=== PATIENT | male | born 1970 ===

== ENCOUNTER 2016-11-19 14:35 | Emergency (ER) | payer SELFPAY ==
[2016-11-19] MEDS ORDERED: DIAZEPAM 5 MG/ML SYRG IV ONE (15:07)
[2016-11-19] MEDS ORDERED: MECLIZINE HCL 25 MG TABLET PO ONE (15:07)
[2016-11-19] MEDS ORDERED: PROMETHAZINE HCL 25 MG in DEXTROSE 5 % IN WATER 50 ML IV ONE ×4 (15:10→15:45)
[2016-11-19] MEDS ORDERED: NORMAL SALINE 1,000 ML IV PRN (15:10)
[2016-11-19 15:32] LABS: Hematocrit 45.9 % (42.0-52.0); Hemoglobin 15.6 gm/dL (13.5-18.0); Mean Cell Volume 89.8 fl (78-100); Mean Corpuscular Hemoglobin 30.5 pg (27-31); Mean Platelet Volume 10.2 fl (6.0-9.5); Neutrophil % 71.6 % (42-75.0); Platelet Count 225 K/mm3 (150-450); Red Blood Count 5.11 M/mm3 (4.7-6.0); White Blood Count 11.2 K/mm3 (4.0-10.5)
--- NOTE | 2016-11-19 15:36 | ERNOTE ---
Dizziness ER Record Date of Service: 11/19/16 Presenting Symptoms: dizziness, vertigo Time Seen by Provider: 11/19/16 15:00 Source: patient, family Exam Limitations: no limitations Immunizations: IMMUNIZATION HX Immunizations Up to Date Yes Allergies/Adverse Reactions: Allergies Allergy/AdvReac Type Severity Reaction Status Date / Time No Known Allergies Allergy Unverified 11/19/16 14:43 Home Medications: HOME MEDICATIONS Meclizine HCl [Antivert] 25 mg PO TID PRN #20 tab 11/19/16 [Last Taken Unknown] Ondansetron [Zofran Odt] 4 mg PO Q6H PRN #20 tab 11/19/16 [Last Taken Unknown] - History of Present Illness Narrative: Patient comes in with vertigo dizziness. Patient who was driving here from [place], [place]. During the ride he started experiencing some dizziness lightheadedness. And then he started vomiting. His dizziness is definitely with any type movements. He did have headache last night but not having any headache presently. Denies any chest pain abdominal pain shortness of breath. His dizziness is worse now even when he opens his eyes. He has not any fever is not felt under the weather at all or flulike symptoms. Patient denies any chest pain abdominal pain no visual changes no weakness on one side or the other. He does not have any known history of any heart disease No family history of any aneurysms. Does have known history of hypertension yesterday his blood pressure was quite high and he was having some headache associated with this. Date (Duration): 11/19/16 Timing and Duration: sudden onset, constant Noted on awakening:: No Associated Symptoms: Present: nausea, vomiting, headache - did have a headache last night but was not having any headache presently, light headedness. Absent : hearing loss, ringing/roaring in ear, ear pain Sense of movement: Present: spinning Decreased ability to stand/walk:: Present: weak, off balance Modifying Factors - (Worsens): Reports: changing position, movement of head, standing position Review of Systems - Review of Systems Constitutional: Absent: fever, chills EYE: Absent: eye pain, eye discharge, blurred vision, double vision Cardiology: Present: no symptoms reported Gastrointestinal/Abdominal: Present: nausea, vomiting. Absent: diarrhea, constipation, abdominal pain Musculoskeletal: Present: no symptoms reported Skin: Present: no symptoms reported Neurological: Present: dizziness/light-headedness. Absent: numbness, tingling, tremors All Other Systems: All systems neg except as marked - Patient's Past Medical History Patient History - Medical: Other Patient History - Cancer: No Hx of Cancer Patient History - Surgical Procedures: T & A - Social History Smoking Status: Never smoker Have you smoked in the past 12 months: No Physical Exam - Physical Exam General Appearance: Present: wd/wn, alert, no apparent distress Ears, Nose, Throat: Present: normal ENT inspection, normal pharynx, other - patient does have nystagmus for horizontal especially looking towards the right as compared to the left Neck: Present: normal inspection, nontender, supple - a a a a a a a a a a a a a a a a a a a a a a a a a a a ED Progress - Results and Orders Patient's Lab Results:: I have reviewed the patient's lab results. - Vital Signs Patient's Vital Signs:: I have reviewed the patient's vital signs. Vital Signs: Vital Signs 11/19/16 14:40 Temperature 35.8 C L Pulse Rate 74 Respiratory 14 Rate Blood Pressure 160/98 O2 Sat by Pulse 98 Oximetry - Progress/Reassessment Chief Complaint: Dizziness Progress:: Improved Progress Note-Subjective: 11/19/16 17:45 Patient feeling better dizziness is improved and desires to go home. He would like to hold off on any CAT scan or imaging tests at this time We did talk about his blood pressure being high he is not taking any blood pressure medication he needs to get back on his lisinopril. Go ahead and put him on meclizine, put him on an antiemetic, he'll follow up with family doctor in 2-3 she . return back to the ER with any change worsening symptoms Warning signs and symptoms reviewed with the patient returned back to the ER with good understanding - Transfer of Care Expected Disposition: Discharge Departure Clinical Impression: Vertigo Benign positional vertigo Qualifiers: Laterality: unspecified laterality Qualified Code(s): H81.10 - Benign paroxysmal vertigo, unspecified ear Hypertension Qualifiers: Hypertension type: essential hypertension Qualified Code(s): I10 - Essential ( primary) hypertension - Departure Disposition: Home self-care Condition: Good Instructions: Vertigo, [id number], Benign Positional Vertigo, Managing Your High Blood Pressure Prescriptions: Meclizine HCl [Antivert] 25 mg PO TID PRN #20 tab PRN Reason: Vertigo Ondansetron [Zofran Odt] 4 mg PO Q6H PRN #20 tab PRN Reason: Vomiting
[2016-11-19] MEDS ORDERED: MECLIZINE HCL 25 MG TABLET ONE (15:44)
[2016-11-19] MEDS ORDERED: DIAZEPAM 5 MG/ML SYRG ONE (15:44)
[2016-11-19 15:48] LABS: Albumin * 4.5 gm/dl (3.4-5.0); Anion Gap 15.7 mmol/L (6.8-13.8); BUN/Creatinine Ratio 14.4 (9.0-21.6); Bilirubin, Total 0.7 mg/dL (0.0-1.1); Ca. Corrected For Albumin 8.4 mg/dL (8.4-10.2); Calcium * 9.1 mg/dL (7.9-10.9); Carbon Dioxide 25.4 mmol/L (24-32.6); Potassium 4.1 mmol/L (3.4-4.6); Total Protein 7.8 gm/dL (6.2-8.2)
[2016-11-19] MEDS ORDERED: ONDANSETRON HCL/PF 2 MG/ML VIAL IV ONE (17:31)
[2016-11-19] MEDS ORDERED: ONDANSETRON HCL/PF 2 MG/ML VIAL ONE (17:35)
[2016-11-19 18:25] VITALS: BP 140/86
== END 2016-11-19 18:15 | disposition home or self-care (01) ==
LOC: ER 14:35
DX: H81.10 Benign paroxysmal vertigo, unspecified ear (principal); I10 Essential (primary) hypertension